=== PATIENT | male | born 1970 | race Caucasian/White ===

== ENCOUNTER 2016-09-22 19:16 | Emergency (ER) | payer MEDICAID ==
[2016-09-22 19:46] VITALS: BP 127/79; PULSE 104; RESP 20; TEMP 98.2; O2SAT 95
[2016-09-22 20:26] LABS: BASO # 0.1 K/uL (0.0-0.2); BASO % 0.8 % (0.0-2.0); EOS # 0.2 K/uL (0.0-0.7); EOS % 1.8 % (0.0-4.0); LYMPH # 1.4 K/uL (1.0-4.3); MEAN CELL VOLUME 89.6 fL (80.0-94.0); MEAN CORPUSCULAR HEMOGLOBIN 28.8 pg (27.0-31.0); MEAN CORPUSCULAR HGB CONC 32.2 g/dL (33.0-37.0); MEAN PLATELET VOLUME 8.8 fL (7.2-11.7); MONO % 11.5 % (0.0-10.0); RED CELL DISTRIBUTION WIDTH 15.2 % (11.5-14.5); WHITE BLOOD COUNT 8.8 K/uL (4.8-10.8)
--- NOTE | 2016-09-22 20:27 | C.PDOC ---
History Of Present Illness <Varinder Dupree - Last Filed: 09/22/16 21:16> <Issac Perez - Last Filed: 09/23/16 01:03> A 46 year old male presents to the emergency room with feelings of depression. There are no exacerbating or relieving factors. Patient denies any fever, chills , nausea, vomiting, SI/HI, hallucinations, or any other complaints. (Varinder Dupree) History Per: Patient History/Exam Limitations: no limitations Onset/Duration Of Symptoms: Hrs Current Symptoms Are (Timing): Still Present Suicide/Self Injury Attempted (Context): None Modifying Factor(s): None Severity: None Associated Symptoms: Depression. denies: Suicidal Thoughts, Suicidal Plan Recent travel outside of the [place]: No <Varinder Dupree - Last Filed: 09/22/16 21:16> <Issac Perez - Last Filed: 09/23/16 01:03> Time Seen by Provider: 09/22/16 19:44 Chief Complaint (Nursing): Psychiatric Evaluation Past Medical History Reviewed: Historical Data, Nursing Documentation, Vital Signs - Medical History PMH: Anxiety, Bipolar Disorder, Depression, HTN Denies: Diabetes, Hepatitis, HIV, Chronic Kidney Disease, Seizures, Sexually Transmitted Disease Surgical History: Cholecystectomy Family History: States: Unknown Family Hx - Social History Hx Tobacco Use: No Hx Alcohol Use: No Hx Substance Use: Yes - Immunization History Hx Tetanus Toxoid Vaccination: No Hx Influenza Vaccination: Yes Hx Pneumococcal Vaccination: Yes <Varinder Dupree - Last Filed: 09/22/16 21:16> Review Of Systems Except As Marked, All Systems Reviewed And Found Negative. Constitutional: Negative for: Fever, Chills Gastrointestinal: Negative for: Nausea, Vomiting, Diarrhea Psych: Positive for: Depression <Varinder Dupree - Last Filed: 09/22/16 21:16> Physical Exam - Physical Exam Appears: Non-toxic Skin: Warm, Dry, No Rash Head: Atraumatic, Normacephalic Cardiovascular: Rhythm Regular Respiratory: Normal Breath Sounds, No Rales, No Rhonchi, No Wheezing Gastrointestinal/Abdominal: Soft, No Tenderness, No Guarding, No Rebound Extremity: Normal ROM, No Tenderness Neurological/Psych: Oriented x3, Normal Speech, Normal Cognition <Varinder Dupree - Last Filed: 09/22/16 21:16> ED Course And Treatment - Laboratory Results Result Diagrams: 09/22/16 20:22 09/22/16 20:22 O2 Sat by Pulse Oximetry: 95 <Varinder Dupree - Last Filed: 09/22/16 21:16> - Laboratory Results Result Diagrams: 09/22/16 20:22 09/22/16 20:22 Pulse Ox Interpretation: Normal <Issac Perez - Last Filed: 09/23/16 01:03> Medical Decision Making <Varinder Dupree - Last Filed: 09/22/16 21:16> <AnaValdi - Last Filed: 09/23/16 01:03> Medical Decision Making: Plan: -- Labs/Urinalysis Progress Notes: Patient is medically cleared. (Varinder Dupree) Disposition <Varinder Dupree - Last Filed: 09/22/16 21:16> Counseled Patient/Family Regarding: Studies Performed, Diagnosis - Disposition Disposition Time: 01:00 <Issac Perez - Last Filed: 09/23/16 01:03> - Disposition Disposition: AGAINST MEDICAL ADVICE Condition: FAIR Instructions: Depression (DC), Cocaine Abuse (ED) - Clinical Impression Clinical Impression: Depression, Cocaine abuse - Scribe Statement The provider has reviewed the documentation as recorded by the Scribe <Varinder Dupree - Last Filed: 09/22/16 21:16> <Issac Perez - Last Filed: 09/23/16 01:03> - Scribe Statement Mario Hernandez All medical record entries made by the Scribe were at my direction and personally dictated by me. I have reviewed the chart and agree that the record accurately reflects my personal performance of the history, physical exam, medical decision making, and the department course for this patient. I have also personally directed, reviewed, and agree with the discharge instructions and disposition. (Varinder Dupree)
[2016-09-22 20:37] LABS: CHLORIDE 105 mmol/L (98-107); POTASSIUM 3.7 mmol/L (3.6-5.2); SODIUM 142 mmol/L (132-148)
[2016-09-22 20:39] LABS: ALB/GLOB RATIO 1.3 (1.0-2.1); ALKALINE PHOSPHATASE 47 U/L (38-126); AST/SGOT 19 U/L (17-59); BILIRUBIN,TOTAL 0.5 mg/dL (0.2-1.3); BLOOD UREA NITROGEN 20 mg/dL (9-20); CARBON DIOXIDE 30 mmol/L (22-30); GFR AFRICAN-AMERICAN > 60; TOTAL PROTEIN 6.3 g/dL (6.3-8.3)
[2016-09-22 20:40] LABS: ALCOHOL SERUM < 10 mg/dl (0-10); ALT/SGPT 19 U/L (21-72); GLUCOSE,RANDOM 104 mg/dL (75-110)
[2016-09-22 20:56] LABS: RBC URINE 3 /hpf (0-3); URINE BACTERIA OCC (<OCC); URINE BILIRUBIN NEGATIVE (NEGATIVE); URINE BLOOD NEGATIVE (NEGATIVE); URINE COLOR Yellow (YELLOW); URINE GLUCOSE (UA) NORMAL (Normal); URINE KETONE NEGATIVE (NEGATIVE); URINE LEUKOCYTE ESTERASE 1+ Leu/uL (Negative); URINE PROTEIN NEGATIVE (NEGATIVE); URINE UROBILINOGEN NORMAL mg/dL (0.2-1.0); WBC URINE 21 /hpf (0-5)
== END 2016-09-23 01:15 | disposition left against medical advice (07) ==
LOC: C.ER 19:16
DX: F32.89 Other specified depressive episodes (principal); F14.10 Cocaine abuse, uncomplicated

== ENCOUNTER 2017-08-11 11:08 | Inpatient (IN) | payer MEDICARE, MEDICAID ==
[2017-08-11 11:47] LABS: BASO # 0.1 K/uL (0.0-0.2); BASO % 0.7 % (0.0-2.0); EOS # 0.2 K/uL (0.0-0.7); EOS % 2.1 % (0.0-4.0); HEMOGLOBIN 15.2 g/dL (12.0-18.0); LYMPH # 1.2 K/uL (1.0-4.3); LYMPH % 11.5 % (20.0-40.0); MEAN CORPUSCULAR HEMOGLOBIN 28.6 pg (27.0-31.0); MEAN CORPUSCULAR HGB CONC 33.3 g/dL (33.0-37.0); MEAN PLATELET VOLUME 8.6 fL (7.2-11.7); MONO # 0.9 K/uL (0.0-0.8); MONO % 8.9 % (0.0-10.0); NEUT # 7.7 K/uL (1.8-7.0); NEUT % 76.8 % (50.0-75.0); RBC 5.32 Mil/uL (4.40-5.90); RED CELL DISTRIBUTION WIDTH 16.9 % (11.5-14.5); SQUAMOUS EPITHIAL 1 /hpf (0-5); URINE BILIRUBIN NEGATIVE (NEGATIVE); URINE BLOOD NEGATIVE (NEGATIVE); URINE CLARITY Clear (Clear); URINE COLOR Yellow (YELLOW); URINE GLUCOSE (UA) NORMAL (Normal); URINE LEUKOCYTE ESTERASE NEG Leu/uL (Negative); URINE PROTEIN NEGATIVE (NEGATIVE); URINE UROBILINOGEN NORMAL mg/dL (0.2-1.0); WHITE BLOOD COUNT 10.1 K/uL (4.8-10.8)
[2017-08-11 11:58] LABS: ALB/GLOB RATIO 1.2 (1.0-2.1); ALBUMIN 3.8 g/dL (3.5-5.0); ALT/SGPT 14 U/L (21-72); AST/SGOT 19 U/L (17-59); BLOOD UREA NITROGEN 24 mg/dL (9-20); CALCIUM 8.7 mg/dl (8.6-10.4); GFR AFRICAN-AMERICAN > 60; GFR NON-AFRICAN AMERICAN > 60
[2017-08-11 12:11] LABS: BARBITURATES, UR NEGATIVE (NEGATIVE); BENZODIAZEPINES, UR NEGATIVE (NEGATIVE); OPIATES, UR NEGATIVE (NEGATIVE); PHENCYCLIDINE, UR NEGATIVE (NEGATIVE)
--- NOTE | 2017-08-11 13:00 | C.PDOC ---
History Of Present Illness 47 year old male, with past medical history of anxiety, bipolar disorder, and depression, presents to ED for evaluation of depression and suicidal thoughts without a plan. Otherwise, denies hallucinations, homicidal ideation, or any active physical complaints at this time. Time Seen by Provider: 08/11/17 11:34 Chief Complaint (Nursing): Psychiatric Evaluation History Per: Patient History/Exam Limitations: no limitations Onset/Duration Of Symptoms: Gradual Current Symptoms Are (Timing): Still Present Suicide/Self Injury Attempted (Context): None Modifying Factor(s): None Severity: None Pain Scale Rating Of: 0 Associated Symptoms: Depression, Suicidal Thoughts. 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 Constitutional: Negative for: Fever, Chills Cardiovascular: Negative for: Chest Pain, Palpitations Respiratory: Negative for: Cough, Shortness of Breath Gastrointestinal: Negative for: Nausea, Vomiting, Abdominal Pain Psych: Positive for: Depression, Suicidal ideation Physical Exam - Physical Exam Appears: Non-toxic, No Acute Distress Skin: Normal Color, Warm, Dry Head: Atraumatic, Normacephalic Eye(s): bilateral: Normal Inspection Oral Mucosa: Moist Neck: Normal ROM, Supple Cardiovascular: Rhythm Regular Respiratory: No Accessory Muscle Use Extremity: Normal ROM, No Deformity Neurological/Psych: Oriented x3, Normal Speech ED Course And Treatment - Laboratory Results Result Diagrams: 08/11/17 11:40 08/11/17 11:40 O2 Sat by Pulse Oximetry: 94 Medical Decision Making Medical Decision Making: Labs ordered and reviewed. In my clinical judgment patient is medically cleared and stable for psychiatric admission. PES evaluated patient. Patient to be admitted to Dr Richards service for depression. 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 - Scribe Statement The provider has reviewed the documentation as recorded by the Scribe Jamaal Garsia All medical record entries made by the Scribe were at my direction and personally dictated by me. I have reviewed the chart and agree that the record accurately reflects my personal performance of the history, physical exam, medical decision making, and the department course for this patient. I have also personally directed, reviewed, and agree with the discharge instructions and disposition. Decision To Admit - Pt Status Changed To: Hospital Disposition Of: Inpatient - Admit Certification Admit to Inpatient:: After my assessment, the patient will require hospitalization for at least two midnights. This is because of the severity of symptoms shown, intensity of services needed, and/or the medical risk in this patient being treated as an outpatient. - InPatient: Physician Admission Certification: I certify that this patient requires 2 or more midnights of care for the following reason:: Patient to be admitted for depression - . Bed Request Type: Regular Admitting Physician: Girma Richards Patient Diagnosis: Depression
--- NOTE | 2017-08-12 06:46 | PCM.BM ---
<Raji Castaneda - Last Filed: 08/12/17 06:45> Treatment Plan Problems - Problems identified on initial assessmt Depression Date Initiated: 08/11/17 Time Initiated: 02:00 Assessment reference: NA Status: Active Treatment assets and liabiliti Patient Assests: good support system, negotiates basic needs Patient Liabilities: substance abuse (Cocaine) - Milieu Protocol Maintain good personal hygiene: daily Encourage regular showers, daily Remind patient to perform daily oral care, every shift Assist patient to perform ADL's Conduct patient checks and document Observation sheet: Q15 minutes Maintain personal safety: every shift Educate patient to report safety concerns to staff, every shift Monitor environment for contraband/sharps Medication safety: Monitor for expected outcome, potential side effects: every shift, Assess barriers to learning: every shift, Assess readiness for medication education: every shift <Kinjal Cruz - Last Filed: 08/13/17 11:32> - Diagnosis (1) Depression Status: Acute Interventions: 08/13/17 11:33 * Assess/adjust medications daily and /or as needed * See patient on an individual basis 7x/week to assess symptoms of depression * Monitor for side effects & effectiveness of medications * (2) Cocaine abuse Status: Acute Interventions: 08/13/17 11:33 * Assess 7x/week regarding severity of withdrawal * Educate regarding risks, benefits, side effects and alternatives of medications * Use Motivational Interviewing for abstinence * Use CBT for relapse prevention * Medication management for withdrawal symptoms * Encourage medication assisted treatment * <Francesca Mayen - Last Filed: 08/14/17 12:41> Family Contact Family involvement: Patient does not wish Family/SO involvement Family contact: Patient declines to allow family contact at present - Goals for Treatment Patient goals for treatment: "I want to be referred to [facility] -21 day rehab for substance abuse treatment." Discharge/Continuing Care - Education Needs Education Needs: Patient Medication, Patient Diagnosis/Disease Process, Patient Coping Skills, Patient Aftercare Safety Plan - Discharge Discharge Criteria: Free of Suicidal thoughts, Normal sleep pattern, Ability to care for self Discharge to:: Substance Abuse Rehab - Treatment Team Participation Discussed with Family/SO: No Was Patient/Family/SO present at Treatment Team Meeting: Yes
--- NOTE | 2017-08-12 14:47 | PCM.PSYCH ---
Initial Psychiatric Evaluation - Initial Psychiatric Evaluation Type of Admission: Voluntary Legal Status: Capacity Chief Complaint (in patient's own words): I started feeling more depressed and also had suicidal ideations. History of Present Illness and Precipitating Events: Patient is a 47 years old, , unemployed on disability, male with history of depression and cocaine use, was admitted due to worsening of depression and suicidal ideations without plan. Patient reported he started feeling more depressed for last 4-5 days for no reason, decreased sleep and feeling tired in the morning, no change in appetite but came to about 20 pounds in about one month. Also started suicidal ideations without plan. Denied any previous suicidal attempts or homicidal ideations. Patient denied any psychotic, or manic symptoms. Patient also reported having manic symptoms including decreased sleep, increased energy, shopping spree, involvement in reckless behavior at times. Patient reported these manic symptoms last for 1-2 days followed by depression. History of 4 previous inpatient psychiatric admissions. His last admission was at [facility] in 2016. Currently patient is taking Abilify 5 mg daily prescribed by his primary care physician. Patient didn't see any psychiatrist. Cocaine: Started using cocaine at 17 years of age, increased gradually. Currently he was smoking one to 5 g daily, smoking and sniffing. Last used reported 6 days ago. Urine drug screen was positive for cocaine. Also smokes one pack of cigarettes daily and is requesting for nicotine patch. Patient has history of [employer] accident in 2006 and had one lung collapsed, also was in coma for 1 month. Patient was on a respirator for about 6 months. Patient was born in [place], has some college education. Not working since 2006 , on disability. He is and has no children. Lives with his . His height is 6 feet and weight is 225 pounds. Current Medications: Active Medications Generic Name Dose Route Start Last Admin Trade Name Freq PRN Reason Stop Dose Admin Aripiprazole 5 mg 08/11/17 22:00 08/11/17 22:19 Abilify PO 5 mg HS CHLOÉ Administration Bupropion HCl 75 mg 08/12/17 14:45 Wellbutrin PO DAILY CHLOÉ Hydroxyzine HCl 25 mg 08/11/17 15:16 08/12/17 14:03 Atarax PO 25 mg Q6 PRN Administration Anxiety Lisinopril 20 mg 08/11/17 15:15 04/08/18 09:12 Zestril PO 20 mg DAILY CHLOÉ Administration Nicotine 1 patch 08/11/17 15:15 08/12/17 09:12 Nicoderm Cq TD 1 patch DAILY CHLOÉ Administration Fluticasone/Salmeterol 1 puff 08/12/17 20:00 Advair Diskus 250/50 INH RQ12 CHLOÉ Trazodone HCl 50 mg 08/11/17 22:00 08/11/17 22:19 Desyrel PO 50 mg HS CHLOÉ Administration Past Psychiatric History - Past Psychiatric History Previous Treatment History: Inpatient History of Abuse: None reported History of ETOH/Drug Use: See HPI History of Family Illness: None reported Pertinent Medical Hx (Current Medical&Sleep Prob, Allergies): Allergies Allergy/AdvReac Type Severity Reaction Status Date / Time diphenhydramine HCl Allergy ANAPHYLAXIS Verified 08/11/17 11:22 [From Benadryl] iodine Allergy RASH Verified 08/11/17 11:22 Penicillins Allergy RASH Verified 08/11/17 11:22 No Known Home Med 09/22/16 Hypertension COPD Peripheral neuropathy Review of Systems - Psychiatric Psychiatric: Abnormal Sleep Pattern, Anhedonia, Depression, Other Mental Status Examination - Personal Presentation Personal Presentation: Looks stated age - Affect Affect: Depressed - Motor Activity Motor Activity: Calm - Reliability in Providing Information Reliability in Providing Information: Fair - Speech Speech: Organized - Mood Mood: Depressed - Formal Thought Process Formal Thought Process: No Impairment - Hallucinations/Delusions Hallucinations: Other (None reported) Delusions: Other - Obsessions/Compulsions Obsessions: None Compulsions: None - Cognitive Functions Orientation: Person, Place, Situation, Time Sensorium: Alert Attention/Concentration: Attentive Abstract Thinking: [place] Estimate of Intelligence: Average Judgement: Intact, as evidence by: Insight regarding need for hospitalization Memory: Recent intact, as evidence by: Ability to recall events of the day, Remote intact, as evidenced by: Ability to recall historical events - Risk Risk: Withdrawal, Diminished functioning - Strength & Assets Inventory Strength & Assets Inventory: Family support, Cooperative - Limitations Limitations: Other DSM 5 DX - DSM 5 DSM 5 Diagnosis: Major depressive disorder recurrent severe without psychotic features Cocaine use disorder severe Provisional: Bipolar II disorder depressed - Recommended/Plan of Treatment Treatment Recommendations and Plan of Treatment: Patient education Supportive therapy CPT for relapse prevention IA for abstinence We will start Wellbutrin, continue with Abilify. Medication for COPD. Other when necessary medications. Patient wants to go to [facility] after discharge from the hospital for follow-up care. Projected ELOS: 8-10 days - Smoking Cessation Smoking Cessation Initiated: Yes
[2017-08-12] MEDS: Fluticasone-Salmeterol 250-50mcg Diskus INH SCH (20:11)
[2017-08-13] MEDS: Fluticasone-Salmeterol 250-50mcg Diskus INH SCH ×2 (08:30→20:28)
--- NOTE | 2017-08-13 11:32 | PCM.PYCHPN ---
Psychiatric Progress Note - Psychiatric Progress Note Patient seen today, length of contact: 15 min Patient Chief Complaint: I m feeling depressed Problems Identified/Issues Discussed: Patient seen and evaluated, chart reviewed and discussed with the nurse. He reports depressed mood and feelings of hopelessness and helplessness. Patient remained isolated, confined and withdrawn. Patient is compliant with medications and denies any side effects. Symptoms are improving but need more time to stabilize. Support and psychoeducation given. Medication Change: Yes Medical Record Reviewed: Yes Mental Status Examination - Cognitive Function Orientation: Person, Place, Situation, Time Memory: Intact Attention: WNL Concentration: Poor Association: WNL Fund of Knowledge: Poor - Mood Mood: Depressed, Anxious - Affect Affect: Constricted, Depressed - Speech Speech: Soft - Formal Thought Process Formal Thought Process: No Impairment - Suicidal Ideation Suicidal Ideation: No - Homicidal Ideation Homicidal Ideation: No Goal/Treatment Plan - Goal/Treatment Plan Need for Continued Stay: Severe depression anxiety, Severe functional impairment Progress Toward Problem(s) and Goals/Treatment Plan: Bipolar II disorder depressed severe without psychotic features Cocaine use disorder severe Patient education Supportive therapy CPT for relapse prevention MD for abstinence Wellbutrin Abilify. Medication for COPD. Other when necessary medications. Patient wants to go to [facility] rehabilitation after discharge from the hospital for follow-up care. - Smoking Cessation Smoking Cessation Initiated: No
[2017-08-14] MEDS: Fluticasone-Salmeterol 250-50mcg Diskus INH SCH ×2 (07:55→20:19)
--- NOTE | 2017-08-14 10:47 | PCM.PYCHPN ---
Psychiatric Progress Note - Psychiatric Progress Note Patient seen today, length of contact: 15 min Patient Chief Complaint: I am feeling little better.' Problems Identified/Issues Discussed: Patient seen and evaluated, chart reviewed and discussed with the nurse. He reports some improvement in his depressed mood and reports some improvement in the feelings of hopelessness and helplessness. Patient remained isolated, confined and withdrawn. Patient is compliant with medications and denies any side effects. Symptoms are improving but need more time to stabilize. Support and psychoeducation given. Medication Change: Yes (increase welbutrin) Medical Record Reviewed: Yes Mental Status Examination - Cognitive Function Orientation: Person, Place, Situation, Time Memory: Intact Attention: WNL Concentration: Poor Association: WNL Fund of Knowledge: Poor - Mood Mood: Depressed, Anxious - Affect Affect: Constricted, Depressed - Speech Speech: Soft - Formal Thought Process Formal Thought Process: No Impairment - Suicidal Ideation Suicidal Ideation: No - Homicidal Ideation Homicidal Ideation: No Goal/Treatment Plan - Goal/Treatment Plan Need for Continued Stay: Severe depression anxiety, Severe functional impairment Progress Toward Problem(s) and Goals/Treatment Plan: Bipolar II disorder depressed severe without psychotic features Cocaine use disorder severe Patient education Supportive therapy CPT for relapse prevention NV for abstinence Wellbutrin Abilify. Medication for COPD. Other when necessary medications. Patient wants to go to [facility] after discharge from the hospital for follow-up care. - Smoking Cessation Smoking Cessation Initiated: No
[2017-08-15 06:39] VITALS: RESP 20
[2017-08-15] MEDS: Fluticasone-Salmeterol 250-50mcg Diskus INH SCH ×2 (08:27→20:53)
[2017-08-15] MEDS: buPROPion 150 mg/24 Hours XL Tab PO SCH (10:16)
--- NOTE | 2017-08-15 13:21 | PCM.PYCHPN ---
Psychiatric Progress Note - Psychiatric Progress Note Patient seen today, length of contact: 15 min Patient Chief Complaint: I am still feeling depressed.' Problems Identified/Issues Discussed: The pt is seen, chart reviewed, case discussed with staff. Patient states he slept okay and eating okay. Support given, CBT and [place] used briefly Patient is complaint with medications. No new symptoms reported, improving slowly and needs more time No SEs from medications, risks discussed. Medication Change: Yes (increase welbutrin) Medical Record Reviewed: Yes Mental Status Examination - Cognitive Function Orientation: Person, Place, Situation, Time Memory: Intact Attention: WNL Concentration: Poor Association: WNL Fund of Knowledge: Poor - Mood Mood: Depressed - Affect Affect: Constricted, Depressed - Speech Speech: Soft - Formal Thought Process Formal Thought Process: No Impairment - Suicidal Ideation Suicidal Ideation: No - Homicidal Ideation Homicidal Ideation: No Goal/Treatment Plan - Goal/Treatment Plan Need for Continued Stay: Severe depression anxiety, Severe functional impairment Progress Toward Problem(s) and Goals/Treatment Plan: Bipolar II disorder depressed severe without psychotic features Cocaine use disorder severe Patient education Supportive therapy CPT for relapse prevention [place] for abstinence Wellbutrin Abilify. Medication for COPD. Other when necessary medications. Patient plans to go to [facility] after discharge from the hospital for follow-up care.
[2017-08-16] MEDS: Fluticasone-Salmeterol 250-50mcg Diskus INH SCH ×2 (09:40→20:17)
[2017-08-16] MEDS: buPROPion 150 mg/24 Hours XL Tab PO SCH (09:40)
--- NOTE | 2017-08-16 23:45 | PCM.PYCHPN ---
Psychiatric Progress Note - Psychiatric Progress Note Patient seen today, length of contact: 15 min Patient Chief Complaint: I am still feeling depressed.' Problems Identified/Issues Discussed: The pt is seen, chart reviewed, case discussed with staff. Patient states he slept okay and eating okay. Support given, CBT and CA used briefly Patient is complaint with medications. No new symptoms reported, improving slowly and needs more time No SEs from medications, risks discussed. Medication Change: Yes (increase welbutrin) Medical Record Reviewed: Yes Mental Status Examination - Cognitive Function Orientation: Person, Place, Situation, Time Memory: Intact Attention: WNL Concentration: Poor Association: WNL Fund of Knowledge: Poor - Mood Mood: Depressed - Affect Affect: Constricted, Depressed - Speech Speech: Soft - Formal Thought Process Formal Thought Process: No Impairment - Suicidal Ideation Suicidal Ideation: No - Homicidal Ideation Homicidal Ideation: No Goal/Treatment Plan - Goal/Treatment Plan Need for Continued Stay: Severe depression anxiety, Severe functional impairment Progress Toward Problem(s) and Goals/Treatment Plan: Bipolar II disorder depressed severe without psychotic features Cocaine use disorder severe Patient education Supportive therapy CPT for relapse prevention [place] for abstinence Wellbutrin Abilify. Medication for COPD. Other when necessary medications. Patient plans to go to [facility] after discharge from the hospital for follow-up care.
--- NOTE | 2017-08-17 00:25 | PCM.BM ---
Treatment Plan Problems - Problems identified on initial assessmt Depression Date Initiated: 08/11/17 Time Initiated: 02:00 Assessment reference: NA Status: Active Suicidal Ideation Date Initiated: 08/17/17 Time Initiated: 17:30 Assessment reference: NA Status: Monitor Treatment assets and liabiliti Patient Assests: good support system, negotiates basic needs Patient Liabilities: substance abuse (Cocaine, Heroin) - Milieu Protocol Maintain good personal hygiene: daily Encourage regular showers, daily Remind patient to perform daily oral care, every shift Assist patient to perform ADL's Conduct patient checks and document Observation sheet: Q15 minutes Maintain personal safety: every shift Educate patient to report safety concerns to staff, every shift Monitor environment for contraband/sharps Medication safety: Monitor for expected outcome, potential side effects: every shift, Assess barriers to learning: every shift, Assess readiness for medication education: every shift Milieu Narrative: Bipolar II disorder depressed severe without psychotic features Cocaine use disorder severe Patient education Supportive therapy CPT for relapse prevention CO for abstinence Wellbutrin Abilify. Medication for COPD. Other when necessary medications. Patient plans to go to [facility] rehabilitation after discharge from the hospital for follow-up care. Family Contact Family involvement: Patient does not wish Family/SO involvement Family contact: Patient declines to allow family contact at present - Goals for Treatment Patient goals for treatment: "I want to be referred to [facility] -21 day rehab for substance abuse treatment." Discharge/Continuing Care - Education Needs Education Needs: Patient Medication, Patient Diagnosis/Disease Process, Patient Coping Skills, Patient Aftercare Safety Plan - Discharge Discharge Criteria: Free of Suicidal thoughts, Normal sleep pattern, Ability to care for self Discharge to:: Substance Abuse Rehab - Treatment Team Participation Patient/Family/SO Statement: Bipolar II disorder depressed severe without psychotic features Cocaine use disorder severe Patient education Supportive therapy CPT for relapse prevention CO for abstinence Wellbutrin Abilify. Medication for COPD. Other when necessary medications. Patient plans to go to [facility] rehabilitation after discharge from the hospital for follow-up care. Discussed with Family/SO: No Was Patient/Family/SO present at Treatment Team Meeting: Yes
[2017-08-17] MEDS: Fluticasone-Salmeterol 250-50mcg Diskus INH SCH ×2 (08:02→20:12)
[2017-08-17] MEDS: buPROPion 150 mg/24 Hours XL Tab PO SCH (10:07)
--- NOTE | 2017-08-17 11:31 | PCM.PYCHPN ---
Psychiatric Progress Note - Psychiatric Progress Note Patient seen today, length of contact: 15 min Patient Chief Complaint: I am still feeling depressed.' Problems Identified/Issues Discussed: The pt is seen, chart reviewed, case discussed with staff. Patient states he slept okay and eating okay. Support given, CBT and IA used briefly Patient is complaint with medications. No new symptoms reported, improving slowly and needs more time No SEs from medications, risks discussed. Medication Change: Yes (increase welbutrin) Medical Record Reviewed: Yes Mental Status Examination - Cognitive Function Orientation: Person, Place, Situation, Time Memory: Intact Attention: WNL Concentration: Poor Association: WNL Fund of Knowledge: Poor - Mood Mood: Depressed - Affect Affect: Constricted, Depressed - Speech Speech: Soft - Formal Thought Process Formal Thought Process: No Impairment - Suicidal Ideation Suicidal Ideation: No - Homicidal Ideation Homicidal Ideation: No Goal/Treatment Plan - Goal/Treatment Plan Need for Continued Stay: Severe depression anxiety, Severe functional impairment Progress Toward Problem(s) and Goals/Treatment Plan: Bipolar II disorder depressed severe without psychotic features Cocaine use disorder severe Patient education Supportive therapy CPT for relapse prevention IA for abstinence Wellbutrin Abilify. Medication for COPD. Other when necessary medications. Patient plans to go to [facility] after discharge from the hospital for follow-up care.
[2017-08-18] MEDS: Fluticasone-Salmeterol 250-50mcg Diskus INH SCH ×2 (08:00→20:44)
[2017-08-18] MEDS: buPROPion 150 mg/24 Hours XL Tab PO SCH (09:53)
--- NOTE | 2017-08-18 13:03 | PCM.PYCHPN ---
Psychiatric Progress Note - Psychiatric Progress Note Patient seen today, length of contact: 15 min Patient Chief Complaint: I am waiting to hear from rehab' Problems Identified/Issues Discussed: The pt is seen, chart reviewed, case discussed with staff. Patient states he slept okay and eating okay. patient still waiting for response from rehabilitation. Support given, CBT and AR used briefly Patient is complaint with medications. No new symptoms reported, improving slowly and needs more time No SEs from medications, risks discussed. Medication Change: Yes (increase welbutrin) Medical Record Reviewed: Yes Mental Status Examination - Cognitive Function Orientation: Person, Place, Situation, Time Memory: Intact Attention: WNL Concentration: Poor Association: WNL Fund of Knowledge: Poor - Mood Mood: Depressed - Affect Affect: Constricted, Depressed - Speech Speech: Soft - Formal Thought Process Formal Thought Process: No Impairment - Suicidal Ideation Suicidal Ideation: No - Homicidal Ideation Homicidal Ideation: No Goal/Treatment Plan - Goal/Treatment Plan Need for Continued Stay: Severe depression anxiety, Severe functional impairment Progress Toward Problem(s) and Goals/Treatment Plan: Bipolar II disorder depressed severe without psychotic features Cocaine use disorder severe Patient education Supportive therapy CPT for relapse prevention AR for abstinence Wellbutrin 150 mg Abilify 10 mg Trazodone 50 mg Medication for COPD. Other when necessary medications. Patient plans to go to [facility] after discharge from the hospital for follow-up care. - Smoking Cessation Smoking Cessation Initiated: No
[2017-08-19] MEDS: Fluticasone-Salmeterol 250-50mcg Diskus INH SCH ×2 (08:00→20:11)
[2017-08-19] MEDS: buPROPion 150 mg/24 Hours XL Tab PO SCH (09:40)
--- NOTE | 2017-08-19 10:49 | PCM.PYCHPN ---
Psychiatric Progress Note - Psychiatric Progress Note Patient seen today, length of contact: 15 min Patient Chief Complaint: I am waiting to hear from rehab' Problems Identified/Issues Discussed: The pt is seen, chart reviewed, case discussed with staff. Patient states he slept okay and eating okay. patient still waiting for response from rehabilitation. Support given, CBT and [place] used briefly Patient is complaint with medications. No new symptoms reported, improving slowly and needs more time No SEs from medications, risks discussed. Medication Change: Yes (increase welbutrin) Medical Record Reviewed: Yes Mental Status Examination - Cognitive Function Orientation: Person, Place, Situation, Time Memory: Intact Attention: WNL Concentration: Poor Association: WNL Fund of Knowledge: Poor - Mood Mood: Depressed - Affect Affect: Constricted, Depressed - Speech Speech: Soft - Formal Thought Process Formal Thought Process: No Impairment - Suicidal Ideation Suicidal Ideation: No - Homicidal Ideation Homicidal Ideation: No Goal/Treatment Plan - Goal/Treatment Plan Need for Continued Stay: Severe depression anxiety, Severe functional impairment Progress Toward Problem(s) and Goals/Treatment Plan: Bipolar II disorder depressed severe without psychotic features Cocaine use disorder severe Patient education Supportive therapy CPT for relapse prevention [place] for abstinence Wellbutrin 150 mg Abilify 10 mg Trazodone 50 mg Medication for COPD. Other when necessary medications. Patient plans to go to [facility] after discharge from the hospital for follow-up care.
[2017-08-20 06:43] VITALS: BP 119/85; PULSE 84; TEMP 98; O2SAT 94
[2017-08-20] MEDS: Fluticasone-Salmeterol 250-50mcg Diskus INH SCH (08:01)
[2017-08-20] MEDS: buPROPion 150 mg/24 Hours XL Tab PO SCH (09:48)
--- NOTE | 2017-08-20 10:06 | PCM.PYCHDC ---
Mental Status Examination - Mental Status Examination Orientation: Person, Place, Situation, Time Memory: Intact Mood: Neutral Affect: Constricted Speech: Soft Attention: WNL Concentration: WNL Association: WNL Fund of Knowledge: WNL Formal Thought Process: No Impairment Description of patient's judgement and insight: good, fair Psychotic Thoughts and Behaviors: denies any AVH Suicidal Ideation: No Current Homicidal Ideation?: No Discharge Summary - Discharge Note Reason for Hospitalization: Patient is a 47 years old, , unemployed on disability, male with history of depression and cocaine use, was admitted due to worsening of depression and suicidal ideations without plan. Patient reported he started feeling more depressed for last 4-5 days for no reason, decreased sleep and feeling tired in the morning, no change in appetite but came to about 20 pounds in about one month. Also started suicidal ideations without plan. Denied any previous suicidal attempts or homicidal ideations. Patient denied any psychotic, or manic symptoms. Patient also reported having manic symptoms including decreased sleep, increased energy, shopping spree, involvement in reckless behavior at times. Patient reported these manic symptoms last for 1-2 days followed by depression. History of 4 previous inpatient psychiatric admissions. His last admission was at [facility] in 2016. Currently patient is taking Abilify 5 mg daily prescribed by his primary care physician. Patient didn't see any psychiatrist. Cocaine: Started using cocaine at 17 years of age, increased gradually. Currently he was smoking one to 5 g daily, smoking and sniffing. Last used reported 6 days ago. Urine drug screen was positive for cocaine. Also smokes one pack of cigarettes daily and is requesting for nicotine patch. Patient has history of [employer] accident in 2006 and had one lung collapsed, also was in coma for 1 month. Patient was on a respirator for about 6 months. Patient was born in [place], has some college education. Not working since 2006 , on disability. He is and has no children. Lives with his . His height is 6 feet and weight is 225 pounds. Consultations:: List each consultation separately and include: 1. Reason for request. 2. Findings. 3. Follow-up Summary of Hospital Course include:: 1. Description of specific treatment plan utilized for patients during their course of treatmen. 2. Summarize the time- course for resolution of acute symptoms and/or regressed behaviors. 3. Describe issues identified and worked on during hospitalization. 4. Describe medication utilized. 5. Describe medical problems identified and treated. 6. Reassessment of suicide risk - Diagnosis (1) Depression Current Visit: Yes Status: Acute (2) Cocaine abuse Current Visit: No Status: Acute - Final Diagnosis (DSM 5) Condition upon Discharge: STABLE DSM 5: Major depressive disorder recurrent severe without psychotic features Cocaine use disorder severe Provisional: Bipolar II disorder depressed Disposition: HOME/ ROUTINE Follow-up Treatment Plan: Bipolar II disorder depressed severe without psychotic features Cocaine use disorder severe Patient education Supportive therapy CPT for relapse prevention AR for abstinence Wellbutrin 150 mg Abilify 10 mg Trazodone 50 mg Medication for COPD. Other when necessary medications. Patient plans to go to [facility] rehabilitation after discharge from the hospital for follow-up care. Prescriptions/Medication Reconciliation: ARIPiprazole [Abilify] 10 mg PO HS #30 tab buPROPion XL [Wellbutrin XL] 150 mg PO DAILY #30 t24 traZODone [Desyrel] 50 mg PO HS #30 tab - Smoking Cessation Smoking Cessation Medication prescribed: No - Antipsychotic Medications Pt discharged on 2 or more routine antipsychotic medications: No
== END 2017-08-20 13:16 | disposition home or self-care (01) | DRG 885 ==
LOC: C.ER 11:08 → C.5E 13:00
PROC: GZHZZZZ Group Psychotherapy (ICD-10-PCS; principal; 2017-08-11)
PROC: GZ58ZZZ Individual Psychotherapy, Cognitive-Behavioral (ICD-10-PCS; 2017-08-11)
PROC: GZ56ZZZ Individual Psychotherapy, Supportive (ICD-10-PCS; 2017-08-11)
DX: F33.2 Major depressive disorder, recurrent severe without psychotic features (principal); F14.20 Cocaine dependence, uncomplicated; R45.851 Suicidal ideations; F17.210 Nicotine dependence, cigarettes, uncomplicated; I10 Essential (primary) hypertension; J44.9 Chronic obstructive pulmonary disease, unspecified

== ENCOUNTER 2018-06-15 10:37 | Inpatient (IN) | payer MEDICAID, MEDICARE ==
--- NOTE | 2018-06-15 12:11 | C.PDOC ---
History Of Present Illness 48 year old male presents to the emergency department with complaints of hemoptysis since yesterday. Patient states that he developed a cough with associated body aches, and reports noticing dark blood in his phlegm. Patient also reports shortness of breath, but denies fever, chills, and nasal congestion. Time Seen by Provider: 06/15/18 11:35 Chief Complaint (Nursing): Cough, Cold, Congestion History Per: Patient History/Exam Limitations: no limitations Onset/Duration Of Symptoms: Days (1) Current Symptoms Are (Timing): Still Present Location Of Pain: Diffuse Myalgias Associated Symptoms: Cough, Sputum. denies: Fever, Chills, Nasal Congestion Past Medical History Reviewed: Historical Data, Nursing Documentation, Vital Signs Vital Signs: Last Vital Signs Temp 98.8 F 06/15/18 10:44 Pulse 100 H 06/15/18 10:44 Resp 20 06/15/18 10:44 BP 153/105 H 06/15/18 10:44 Pulse Ox 97 06/15/18 10:44 - Medical History PMH: Anxiety, Bipolar Disorder, COPD, Depression, HTN Denies: Diabetes, Hepatitis, HIV, Chronic Kidney Disease, Seizures, Sexually Transmitted Disease Surgical History: Cholecystectomy - [facility] GROUP DISPLAYER FOR SUBSTANCE ABUSE TREATMENT, PSYCHOEDUCATION (08/17/15) GROUP PSYCHOTHERAPY (08/11/17) INDIVIDUAL PSYCHOTHERAPY, COGNITIVE-BEHAVIORAL (08/11/17) INDIVIDUAL PSYCHOTHERAPY, SUPPORTIVE (08/11/17) Family History: States: Unknown Family Hx - Social History Hx Tobacco Use: No Hx Alcohol Use: Yes Hx Substance Use: Yes - Immunization History Hx Tetanus Toxoid Vaccination: No Hx Influenza Vaccination: No Hx Pneumococcal Vaccination: No Review Of Systems Except As Marked, All Systems Reviewed And Found Negative. Constitutional: Negative for: Fever, Chills ENT: Negative for: Nose Congestion Respiratory: Positive for: Cough, Shortness of Breath, Hemoptysis Physical Exam - Physical Exam Appears: Non-toxic, No Acute Distress Skin: Normal Color, Warm, Dry Head: Atraumatic, Normacephalic Eye(s): bilateral: Normal Inspection Nose: Normal Oral Mucosa: Moist Throat: Normal, No Erythema, No Exudate Neck: Normal, Supple Chest: Symmetrical, No Tenderness Cardiovascular: Rhythm Regular, No Murmur Respiratory: Normal Breath Sounds, No Rales, No Rhonchi, No Wheezing Gastrointestinal/Abdominal: Soft, No Tenderness Extremity: Normal ROM Neurological/Psych: Oriented x3, Normal Speech, Normal Cognition ED Course And Treatment - Laboratory Results Result Diagrams: 06/15/18 13:29 06/15/18 12:59 O2 Sat by Pulse Oximetry: 97 (RA) Pulse Ox Interpretation: Normal Medical Decision Making Medical Decision Making: Plan: CXR Spoke to Dr. Rosales Biggs, who requested to admit the patient to Dr. Radha Biggs. Disposition Discussed With : Rosales Biggs (admit to [facility]) Counseled Patient/Family Regarding: Diagnosis - Disposition Disposition: HOSPITALIZED Disposition Time: 16:50 Condition: STABLE - Clinical Impression Clinical Impression: Pulmonary embolism - Scribe Statement The provider has reviewed the documentation as recorded by the Scribe (Santiago Mobley) Provider Attestation: All medical record entries made by the Scribe were at my direction and personally dictated by me. I have reviewed the chart and agree that the record accurately reflects my personal performance of the history, physical exam, medical decision making, and the department course for this patient. I have also personally directed, reviewed, and agree with the discharge instructions and disposition.
[2018-06-15 13:24] LABS: BLOOD UREA NITROGEN 22 mg/dL (9-20); CALCIUM 8.8 mg/dl (8.6-10.4); GFR NON-AFRICAN AMERICAN > 60
[2018-06-15 13:42] LABS: BASO % 0.4 % (0.0-2.0); EOS # 0.1 K/uL (0.0-0.7); EOS % 1.3 % (0.0-4.0); LYMPH # 0.9 K/uL (1.0-4.3); LYMPH % 10.7 % (20.0-40.0); MEAN CELL VOLUME 87.8 fL (80.0-94.0); MEAN CORPUSCULAR HEMOGLOBIN 28.8 pg (27.0-31.0); MEAN CORPUSCULAR HGB CONC 32.8 g/dL (33.0-37.0); MEAN PLATELET VOLUME 8.4 fL (7.2-11.7); MONO # 0.9 K/uL (0.0-0.8); MONO % 10.8 % (0.0-10.0); NEUT # 6.8 K/uL (1.8-7.0); NEUT % 76.8 % (50.0-75.0); RBC 5.57 Mil/uL (4.40-5.90); RED CELL DISTRIBUTION WIDTH 15.6 % (11.5-14.5); WHITE BLOOD COUNT 8.8 K/uL (4.8-10.8)
[2018-06-15 13:50] LABS: INR 1.1; PARTIAL THROMBOPLASTIN TIME 37 SECONDS (21-34); PROTHROMBIN TIME 11.7 SECONDS (9.7-12.2)
[2018-06-15 13:51] LABS: D DIMER < 200 ng/mlDDU (0-243)
--- NOTE | 2018-06-15 16:22 | NM ---
Date of service: 06/15/2018 COMPARISON: Chest radiographs 06/15/2018. TECHNIQUE: Seventeen mCi technetium 99-m Xe-133 Gas. Four mCI technetium 99-m MAA administered intravenously. FINDINGS: VENTILATION COMPONENT: Small right mid lung zone ventilation defects identified with remaining ventilation normal in appearance. PERFUSION COMPONENT: There are multifocal perfusion defects scattered bilaterally the majority of which are small but numerous. Most of these would reflect perfusion mismatches. IMPRESSION: Highprobability ventilation perfusion scan for pulmonary embolism.
--- NOTE | 2018-06-15 16:37 | CT ---
Date of service: 06/15/2018 PROCEDURE: CT Chest without contrast HISTORY: hemoptysis COMPARISON: None available. TECHNIQUE: Contiguous axial images were obtained through the chest without intravenous contrast enhancement. Sagittal and coronal reconstructions were performed. Radiation dose: Total exam DLP = 849.38 mGy-cm. This CT exam was performed using one or more of the following dose reduction techniques: Automated exposure control, adjustment of the mA and/or kV according to patient size, and/or use of iterative reconstruction technique. FINDINGS: LUNGS: Marked bilateral upper lobe volume loss and fibrosis is reiterated and stable in the interval with the middle and lower lobes adequately aerated once again. There is hyperaeration of the bilateral lower lobes and the right middle lobe to compensate for upper lobe volume loss. No acute consolidation bilaterally. Central airways are stable in appearance throughout. MEDIASTINUM: 4.0 cm ascending thoracic aorta resumes a normal caliber at the arch anteriorly. Normal sized heart. Main pulmonary artery unremarkable. No vascular congestion. No lymphadenopathy. No aortic atherosclerotic calcification. PLEURA: No pleural fluid. No pneumothorax. BONES: A few old healed left rib fractures identified. UPPER ABDOMEN: Prior cholecystectomy. Prior left upper quadrant surgery, possibly gastric bypass surgery. OTHER FINDINGS: None. IMPRESSION: 1. Prominent bilateral upper lobe scarring/volume loss with compensatory hyperinflation of the right middle and bilateral lower lobes. No acute interval consolidation, pleural effusion or pneumothorax. No definite interval mass. 2. Mild thoracic aortic aneurysm terminates at anterior arch. 3. Old healed left rib fractures.
[2018-06-15] MEDS ORDERED: Heparin25000 units/250ml 1/2NS 25,000 UNITS/250 ML BAG IV PRN ×2 (16:41→23:45)
--- NOTE | 2018-06-15 18:35 | RAD ---
Date of service: 06/15/2018 HISTORY: hemoptisis COMPARISON: Chest radiographs 06/05/2017. TECHNIQUE: Chest PA and lateral FINDINGS: LUNGS: No acute infiltrate bilaterally. Fibrotic changes are identified at the left greater than right pulmonary apices with left-sided pleural thickening reiterated. Nodular changes seen at the inferior right lung zone laterally. Tenting of the right greater than left hemidiaphragm is noted. Bilateral hilar regions are displaced cephalad from fibrosis. PLEURA: No significant pleural effusion identified. No pneumothorax apparent. CARDIOVASCULAR: No aortic atherosclerotic calcification present. Normal cardiac size. No pulmonary vascular congestion. OSSEOUS STRUCTURES: No significant abnormalities. VISUALIZED UPPER ABDOMEN: Normal. OTHER FINDINGS: None. IMPRESSION: Fibrotic changes as discussed above with no acute infiltrate bilaterally. Distortion of the hilar regions of has occurred as well as hemidiaphragms due to fibrosis of the bilateral apices. No acute infiltrate or pleural effusion bilaterally.
[2018-06-15] MEDS: buPROPion 150 mg/24 Hours XL Tab PO SCH (21:18)
[2018-06-15] MEDS: guaiFENesin 100 mg/5 ml Syrup UD PO SCH (21:19)
[2018-06-15] MEDS: Moxifloxacin IV 400mg/250ml NS 400 MG/250 ML BAG IVPB SCH (22:44)
[2018-06-15] MEDS: Albuterol-Ipratrop 3 mg / 0.5 (3 ml) UD INH SCH (23:49)
[2018-06-16 01:41] VITALS: RESP 20
[2018-06-16] MEDS: Albuterol-Ipratrop 3 mg / 0.5 (3 ml) UD INH SCH ×5 (03:17→19:58)
[2018-06-16 08:07] LABS: HEMOGLOBIN 14.1 g/dL (12.0-18.0); MEAN CELL VOLUME 88.5 fL (80.0-94.0); MEAN CORPUSCULAR HEMOGLOBIN 29.2 pg (27.0-31.0); MEAN PLATELET VOLUME 8.2 fL (7.2-11.7); RBC 4.85 Mil/uL (4.40-5.90); WHITE BLOOD COUNT 8.8 K/uL (4.8-10.8)
[2018-06-16 08:45] LABS: ALB/GLOB RATIO 1.2 (1.0-2.1); ALBUMIN 3.4 g/dL (3.5-5.0); ALT/SGPT 8 U/L (21-72); AST/SGOT 18 U/L (17-59); BLOOD UREA NITROGEN 19 mg/dL (9-20); CALCIUM 8.4 mg/dl (8.6-10.4); GFR NON-AFRICAN AMERICAN > 60
[2018-06-16] MEDS: guaiFENesin 100 mg/5 ml Syrup UD PO SCH ×4 (10:16→21:30)
[2018-06-16] MEDS: [UNRECOGNIZED DRUG - OTHER] IV PRN (10:23)
[2018-06-16] MEDS: Moxifloxacin IV 400mg/250ml NS 400 MG/250 ML BAG IVPB SCH (21:30)
[2018-06-16] MEDS: buPROPion 150 mg/24 Hours XL Tab PO SCH (21:30)
[2018-06-17] MEDS: Albuterol-Ipratrop 3 mg / 0.5 (3 ml) UD INH SCH ×6 (00:20→19:33)
--- NOTE | 2018-06-17 07:42 | CP.PCM.PN ---
Subjective - Date & Time of Evaluation Date of Evaluation: 06/17/18 Time of Evaluation: 07:42 - Subjective Subjective: Dr. Biggs Service 48 year old male presents to the emergency department with complaints of hemoptysis since for the past couple of days. Patient also reported chest pain associated with the cough. Patient denied any alleiviating or modifying factors. Patient states he began coughing up blood which was the reason he came into the emergency room. Patient seen and examined at bedside. Per nursing no acute events occurred overnight. Patient denies any chest pain, shortness of breath, fevers, chills, abdominal pain, syncopal episodes, or any other complaints. Past medical history: anxiety, bipolar disorder, copd, depression, hypertension Surgical history: cholecystectomy, gastric bypass Allergies: penicillin, iodine, benadryl Social history: 1/2 pack x 30years Objective - Vital Signs/Intake and Output Vital Signs (last 24 hours): Temp Pulse Resp BP Pulse Ox 98.1 F 101 H 20 103/66 96 06/16/18 23:35 06/17/18 04:01 06/16/18 23:35 06/16/18 23:35 06/16/18 23:35 Intake and Output: 06/17/18 06/17/18 06:59 18:59 Intake Total 342 Output Total 750 Balance -408 - Medications Medications: Current Medications Acetaminophen (Tylenol 325mg Tab) 650 mg PO Q4H PRN PRN Reason: pain fever Albuterol/Ipratropium (Duoneb 3 Mg/0.5 Mg (3 Ml) Ud) 3 ml INH RQ4 [facility] Last Admin: 06/17/18 04:30 Dose: Not Given Aripiprazole (Abilify) 10 mg PO DAILY [facility] Last Admin: 06/16/18 10:16 Dose: 10 mg Bupropion HCl (Wellbutrin Xl) 150 mg PO HS [facility] Last Admin: 06/16/18 21:30 Dose: 150 mg Guaifenesin (Robitussin) 100 mg PO QID [facility] Last Admin: 06/16/18 21:30 Dose: Not Given Heparin Sodium/Sodium Chloride (Heparin 02803 Units/250ml 1/2 Normal Saline) 25,000 units in 250 mls @ 12.791 mls/hr IV .[id number] PRN; Protocol PRN Reason: ADJUST RATE PER PROTOCOL Last Admin: 06/16/18 10:23 Dose: 12 units/kg/hr, 12.791 mls/hr Influenza Virus Vaccine (Flucelvax Quad [id number] Syr) 60 mcg IM .ONCE ONE Stop: 06/17/18 10:01 Trazodone HCl (Desyrel) 50 mg PO HS CHLOÉ Last Admin: 06/16/18 21:30 Dose: 50 mg - Labs Labs: 06/16/18 08:00 06/16/18 08:00 PT 11.7 SECONDS (9.7-12.2) 06/15/18 13:29 INR 1.1 06/15/18 13:29 APTT 67 SECONDS (21-34) H D 06/16/18 22:40 - Head Exam Head Exam: ATRAUMATIC, NORMAL INSPECTION - Eye Exam Eye Exam: EOMI Pupil Exam: NORMAL ACCOMODATION - ENT Exam ENT Exam: Mucous Membranes Moist, Normal Oropharynx - Respiratory Exam Respiratory Exam: Clear to Ausculation Bilateral, NORMAL BREATHING PATTERN - Cardiovascular Exam Cardiovascular Exam: REGULAR RHYTHM, +S1, +S2 - GI/Abdominal Exam GI & Abdominal Exam: Soft, Normal Bowel Sounds - Neurological Exam Neurological Exam: Alert, Awake, Oriented x3 - Psychiatric Exam Psychiatric exam: Normal Affect, Normal Mood - Skin Skin Exam: Dry, Intact, Normal Color Assessment and Plan - Assessment and Plan (Free Text) Assessment: 48 year old male with a past medical history of anxiety, bipolar disorder, copd, depression, and hypertension presents with pulmonary embolism. Plan: 1. Pulmonary embolism. V/Q Scan: high probability of pulmonary embolism CXR: :Fibrotic changes as discussed above with no acute infiltrate bilaterally. Distortion of the hilar regions of has occurred as well as hemidiaphragms due to fibrosis of the bilateral apices. No acute infiltrate or pleural effusion bilaterally. Chest ct: 1. Prominent bilateral upper lobe scarring/volume loss with compensatory hyperinflation of the right middle and bilateral lower lobes. No acute interval consolidation, pleural effusion or pneumothorax. No definite interval mass. 2. Mild thoracic aortic aneurysm terminates at anterior arch. 3. Old healed left rib fractures. Duplex taken. Will f/u with final read. Medications: Heparin Drip @12.791 mls/hr 2.Bipolar disorder -Abilify 10mg PO Daily 3.Depression -[id number] PO HS 4. Cough - [id number] PO QID CHLOÉ 5. Insomnia -Trazadone 50mg PO HS CHLOÉ All management per Dr. Dian Prieto, PGY2
--- NOTE | 2018-06-17 09:15 | HP ---
HISTORY OF PRESENT ILLNESS: This is a 48-year-old male, admitted to the hospital with chief complaints of weakness, fatigue, tiredness, cough, and hemoptysis. The patient came to the ER, advised admission. The patient has history of previous surgery, status post chest tube. V/Q scan done was reported as scan. PHYSICAL EXAMINATION: GENERAL: The patient is awake, alert, and oriented. VITAL SIGNS: Temperature 98, pulse 90. HEENT: Within normal limit. NECK: Supple. CHEST: Symmetrical. HEART: Regular. ABDOMEN: Soft. EXTREMITIES: No edema. ASSESSMENT AND PLAN: The patient suffers from pulmonary embolism. The patient to get bedrest, anticoagulation, supportive care. Radha Biggs MD
[2018-06-17] MEDS: guaiFENesin 100 mg/5 ml Syrup UD PO SCH ×4 (09:29→21:55)
[2018-06-17] MEDS ORDERED: Influenza Vaccine 60 mcg/0.5 mL SYR (4YR UP) IM ONE (10:00)
[2018-06-17] MEDS: [UNRECOGNIZED DRUG - OTHER] IV PRN (10:36)
[2018-06-17] MEDS: buPROPion 150 mg/24 Hours XL Tab PO SCH (22:14)
[2018-06-18] MEDS: Albuterol-Ipratrop 3 mg / 0.5 (3 ml) UD INH SCH ×5 (04:00→16:35)
[2018-06-18] MEDS: [UNRECOGNIZED DRUG - OTHER] IV PRN (06:23)
[2018-06-18 07:31] LABS: BASO % 0.5 % (0.0-2.0); EOS # 0.3 K/uL (0.0-0.7); EOS % 3.6 % (0.0-4.0); HEMOGLOBIN 14.1 g/dL (12.0-18.0); LYMPH # 1.3 K/uL (1.0-4.3); LYMPH % 16.4 % (20.0-40.0); MEAN CELL VOLUME 88.6 fL (80.0-94.0); MEAN CORPUSCULAR HEMOGLOBIN 29.1 pg (27.0-31.0); MEAN CORPUSCULAR HGB CONC 32.9 g/dL (33.0-37.0); MEAN PLATELET VOLUME 8.4 fL (7.2-11.7); NEUT # 5.2 K/uL (1.8-7.0); NEUT % 66.5 % (50.0-75.0); NRBC % 0.1 % (0.0-2.0); RBC 4.85 Mil/uL (4.40-5.90); RED CELL DISTRIBUTION WIDTH 15.3 % (11.5-14.5); WHITE BLOOD COUNT 7.8 K/uL (4.8-10.8)
[2018-06-18 07:41] LABS: ALB/GLOB RATIO 1.2 (1.0-2.1); ALBUMIN 3.5 g/dL (3.5-5.0); ALT/SGPT 13 U/L (21-72); AST/SGOT 20 U/L (17-59); BLOOD UREA NITROGEN 14 mg/dL (9-20); CALCIUM 8.9 mg/dl (8.6-10.4); GFR NON-AFRICAN AMERICAN > 60
[2018-06-18 08:51] VITALS: O2SAT 95
[2018-06-18] MEDS: guaiFENesin 100 mg/5 ml Syrup UD PO SCH ×3 (09:05→17:15)
--- NOTE | 2018-06-18 09:05 | VASCLAB ---
Date of service: 06/17/2018 PROCEDURE: Lower Extremity Venous Duplex Exam. HISTORY: Leg swelling PRIORS: None. TECHNIQUE: Bilateral common femoral, femoral, popliteal and posterior tibial, peroneal and great saphenous veins were evaluated. Flow was assessed with color Doppler, compressibility, assessment of phasic flow and augmentation response. Report prepared by Rodríguez Valerio, VALERIE, RVT FINDINGS: RIGHT: 1. Common Femoral Vein: 1.1. Compressibility - Fully compressible: Thrombus - None : Flow - Phasic: Augmentation -Normal: Reflux - None. 2. Femoral Vein: 2.1. Compressibility - Fully compressible: Thrombus - None : Flow - Phasic: Augmentation -Normal: Reflux - None. 3. Popliteal Vein: 3.1. Compressibility - Fully compressible: Thrombus - None : Flow - Phasic: Augmentation -Normal: Reflux - None. 4. Posterior Tibial Vein: 4.1. Compressibility - Fully compressible: Thrombus - None: Flow - Phasic: Augmentation -Normal: Reflux - None. 5. Peroneal Vein: 5.1. Compressibility - Fully compressible: Thrombus - None: Flow - Phasic: Augmentation -Normal: Reflux - None. 6. Great Saphenous Vein: 6.1. Compressibility - Fully compressible: Thrombus - None: Flow - Phasic: Augmentation - Normal: Reflux - None. LEFT: 1. Common Femoral Vein: 1.1. Compressibility - Fully compressible: Thrombus - None: Flow - Phasic: Augmentation -Normal: Reflux - None. 2. Femoral Vein: 2.1. Compressibility - Fully compressible: Thrombus - None: Flow - Phasic: Augmentation -Normal: Reflux - None. 3. Popliteal Vein: 3.1. Compressibility - Fully compressible: Thrombus - None : Flow - Phasic: Augmentation -Normal: Reflux - None. 4. Posterior Tibial Vein: 4.1. Compressibility - Fully compressible: Thrombus - None: Flow - Phasic: Augmentation -Normal: Reflux - None. 5. Peroneal Vein: 5.1. Compressibility - Fully compressible: Thrombus - None: Flow - Phasic: Augmentation -Normal: Reflux - None. 6. Great Saphenous Vein: 6.1. Compressibility - Fully compressible: Thrombus - None: Flow - Phasic: Augmentation - Normal: Reflux - None. OTHER FINDINGS: Right: None significant. Left: None significant. IMPRESSION: Right: No evidence of deep or superficial vein thrombosis of the right lower extremity. Normal valve function noted of the right side. Left: No evidence of deep or superficial vein thrombosis of the left lower extremity. Normal valve function noted of the left side.
--- NOTE | 2018-06-18 11:07 | CP.PCM.PN ---
Subjective - Date & Time of Evaluation Date of Evaluation: 06/18/18 Time of Evaluation: 11:05 - Subjective Subjective: Progress note. Attending: Dr. Biggs. Pt seen and examined at bedside. No acute distress. No events overnight. No fevers, chills, vomiting, diarrhea. No complaints today. Objective - Vital Signs/Intake and Output Vital Signs (last 24 hours): Temp Pulse Resp BP Pulse Ox 97.7 F 103 H 20 122/85 95 06/18/18 07:15 06/18/18 08:00 06/18/18 07:15 06/18/18 07:15 06/18/18 07:15 Intake and Output: 06/18/18 06/18/18 06:59 18:59 Intake Total 1038.4 Balance 1038.4 - Medications Medications: Current Medications Acetaminophen (Tylenol 325mg Tab) 650 mg PO Q4H PRN PRN Reason: pain fever Albuterol/Ipratropium (Duoneb 3 Mg/0.5 Mg (3 Ml) Ud) 3 ml INH RQ4 [facility] Last Admin: 06/18/18 07:58 Dose: 3 ml Aripiprazole (Abilify) 10 mg PO DAILY [facility] Last Admin: 06/18/18 09:05 Dose: 10 mg Bupropion HCl (Wellbutrin Xl) 150 mg PO HS [facility] Last Admin: 06/17/18 22:14 Dose: 150 mg Guaifenesin (Robitussin) 100 mg PO QID [facility] Last Admin: 06/18/18 09:05 Dose: 100 mg Heparin Sodium/Sodium Chloride (Heparin 81491 Units/250ml 1/2 Normal Saline) 25,000 units in 250 mls @ 12.791 mls/hr IV .[id number] PRN; Protocol PRN Reason: ADJUST RATE PER PROTOCOL Last Admin: 06/18/18 06:23 Dose: 12 units/kg/hr, 12.791 mls/hr Trazodone HCl (Desyrel) 50 mg PO HS [facility] Last Admin: 06/17/18 21:55 Dose: 50 mg - Labs Labs: 06/18/18 07:05 06/18/18 07:05 PT 11.7 SECONDS (9.7-12.2) 06/15/18 13:29 INR 1.1 06/15/18 13:29 APTT 83 SECONDS (21-34) H D 06/18/18 07:05 - Constitutional Appears: Non-toxic, No Acute Distress - Head Exam Head Exam: ATRAUMATIC, NORMAL INSPECTION, NORMOCEPHALIC - Eye Exam Eye Exam: EOMI - ENT Exam ENT Exam: Mucous Membranes Moist - Neck Exam Neck Exam: Full ROM - Respiratory Exam Respiratory Exam: NORMAL BREATHING PATTERN. absent: Respiratory Distress - Cardiovascular Exam Cardiovascular Exam: +S1, +S2 - GI/Abdominal Exam GI & Abdominal Exam: Soft, Normal Bowel Sounds. absent: Tenderness - Extremities Exam Extremities Exam: Full ROM, Normal Inspection - Back Exam Back Exam: NORMAL INSPECTION - Neurological Exam Neurological Exam: Alert, Awake, Oriented x3 - Psychiatric Exam Psychiatric exam: Normal Affect, Normal Mood - Skin Skin Exam: Dry, Intact, Normal Color, Warm Assessment and Plan - Assessment and Plan (Free Text) Assessment: This is a 48 yo male with 1. Pulmonary embolism. V/Q Scan: high probability of pulmonary embolism CXR: :Fibrotic changes as discussed above with no acute infiltrate bilaterally. Distortion of the hilar regions of has occurred as well as hemidiaphragms due to fibrosis of the bilateral apices. No acute infiltrate or pleural effusion bilaterally. Chest ct: 1. Prominent bilateral upper lobe scarring/volume loss with compensatory hyperinflation of the right middle and bilateral lower lobes. No acute interval consolidation, pleural effusion or pneumothorax. No definite interval mass. 2. Mild thoracic aortic aneurysm terminates at anterior arch. 3. Old healed left rib fractures. Duplex: negative for clot Medications: Heparin Drip @12.791 mls/hr 2.Bipolar disorder -Abilify 10 mg PO Daily 3.Depression -bupropion 150 mg PO HS 4. Cough - Robitussin 100mg PO QID [facility] 5. Insomnia -Trazadone 50mg PO HS [facility]
[2018-06-18 17:00] VITALS: BP 120/79; PULSE 87; TEMP 98.5
== END 2018-06-18 18:07 | disposition home or self-care (01) | DRG 176 ==
LOC: C.ER 10:37 → C.6T 16:47
PROVIDERS: ADMIT Internal Medicine Pulmonary Disease; ATTEND Internal Medicine Pulmonary Disease
DX: I26.99 Other pulmonary embolism without acute cor pulmonale (principal); F31.9 Bipolar disorder, unspecified; J44.9 Chronic obstructive pulmonary disease, unspecified; I10 Essential (primary) hypertension; F41.9 Anxiety disorder, unspecified; F32.9 Major depressive disorder, single episode, unspecified; I71.2 Thoracic aortic aneurysm, without rupture; G47.00 Insomnia, unspecified; Z98.84 Bariatric surgery status

== ENCOUNTER 2018-07-11 13:20 | Observation (INO) | payer MEDICARE, MEDICAID ==
--- NOTE | 2018-07-11 14:31 | C.PDOC ---
History Of Present Illness 48 y/o male presents to the ED complaining of recurrent hemoptysis since 3 days ago, associated with SOB. Patient states he was recently admitted a couple weeks ago, reports the CTA could not be done secondary to his allergy to iodine, and he was diagnosed with possible PE. He was discharged on Eliquis, and reports taking it twice daily at home. States he had vascular studies during the admission, showing no DVTs. Patient is also complaining of diffuse body aches describes as joint pain, and feeling tired. He denies fever. Otherwise denies chest pain, abdominal pain, vomiting, diarrhea, back pain, or urinary symptoms. Patient notes +hx of smoking, and is concerned about having lung cancer. Time Seen by Provider: 07/11/18 14:07 Chief Complaint (Nursing): Shortness Of Breath History Per: Patient History/Exam Limitations: no limitations Onset/Duration Of Symptoms: Days (x 3) Current Symptoms Are (Timing): Still Present Associated Symptoms: Bloody Cough. 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 Constitutional: Positive for: Other (Fatigue). Negative for: Fever, Chills Eyes: Negative for: Vision Change ENT: Negative for: Nose Congestion Cardiovascular: Negative for: Chest Pain, Palpitations Respiratory: Positive for: Shortness of Breath, Hemoptysis Gastrointestinal: Negative for: Nausea, Vomiting, Abdominal Pain, Diarrhea Musculoskeletal: Negative for: Back Pain Skin: Negative for: Rash Neurological: Negative for: Weakness, Numbness, Headache, Dizziness Physical Exam - Physical Exam Appears: Non-toxic, No Acute Distress Skin: Normal Color, Warm, No Rash Head: Atraumatic, Normacephalic Eye(s): bilateral: Normal Inspection, PERRL, EOMI Oral Mucosa: Moist Neck: Normal ROM, Supple Chest: Symmetrical, No Deformity, No Tenderness Cardiovascular: Rhythm Regular, No Friction Rub, No Murmur Respiratory: Normal Breath Sounds, No Decreased Breath Sounds, No Rales, No Rhonchi, No Wheezing Gastrointestinal/Abdominal: Soft, No Tenderness, No Distention Back: Normal Inspection, No CVA Tenderness Extremity: Normal ROM, No Tenderness, No Swelling Extremity: Bilateral: Atraumatic, Normal Color And Temperature, Normal ROM Pulses: Left Dorsalis Pedis: Normal, Right Dorsalis Pedis: Normal Neurological/Psych: Oriented x3, Normal Speech, Normal Motor ED Course And Treatment - Laboratory Results Result Diagrams: 07/11/18 15:24 07/11/18 15:24 O2 Sat by Pulse Oximetry: 98 (RA) Pulse Ox Interpretation: Normal Medical Decision Making Medical Decision Making: Impression: known hx of pulmonary embolism, r/o lung mass Plan: - EKG - Labs - CXR Will speak to patient's PMD to determine whether CTA can be obtained. The case was discussed with Dr. Biggs who agrees to admit the patient to his s ervice. 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 - Scribe Statement The provider has reviewed the documentation as recorded by the Scribe Johnna Cody All medical record entries made by the Scribe were at my direction and personally dictated by me. I have reviewed the chart and agree that the record accurately reflects my personal performance of the history, physical exam, medical decision making, and the department course for this patient. I have also personally directed, reviewed, and agree with the discharge instructions and disposition.
[2018-07-11 15:37] LABS: BASO % 0.5 % (0.0-2.0); EOS # 0.3 K/uL (0.0-0.7); EOS % 3.1 % (0.0-4.0); LYMPH # 1.3 K/uL (1.0-4.3); LYMPH % 14.8 % (20.0-40.0); MEAN CELL VOLUME 88.6 fL (80.0-94.0); MEAN CORPUSCULAR HEMOGLOBIN 28.8 pg (27.0-31.0); MEAN CORPUSCULAR HGB CONC 32.5 g/dL (33.0-37.0); MEAN PLATELET VOLUME 9.2 fL (7.2-11.7); MONO % 10.6 % (0.0-10.0); NEUT # 6.5 K/uL (1.8-7.0); NRBC % 0.1 % (0.0-2.0); RBC 5.64 Mil/uL (4.40-5.90); RED CELL DISTRIBUTION WIDTH 15.5 % (11.5-14.5); WHITE BLOOD COUNT 9.1 K/uL (4.8-10.8)
[2018-07-11 15:40] LABS: HEMOGLOBIN 16.2 g/dL (12.0-18.0)
[2018-07-11 15:45] LABS: INR 1.2; PROTHROMBIN TIME 12.9 SECONDS (9.7-12.2)
[2018-07-11 15:48] LABS: ALB/GLOB RATIO 1.4 (1.0-2.1); ALBUMIN 4.4 g/dL (3.5-5.0); ALT/SGPT 18 U/L (21-72); AST/SGOT 27 U/L (17-59); BLOOD UREA NITROGEN 20 mg/dL (9-20); CALCIUM 8.6 mg/dl (8.6-10.4); GFR NON-AFRICAN AMERICAN > 60; LIPASE 66 U/L (23-300)
[2018-07-11 15:58] LABS: B-TYPE NATRIURETIC PEPTIDE 51.7 pg/mL (0-900)
[2018-07-11] MEDS ORDERED: DiphenhydrAMINE 50 mg/ml Inj IVP STA (16:01)
[2018-07-11] MEDS ORDERED: MethylPREDNISolone 40 mg Vial IVP STA (16:01)
--- NOTE | 2018-07-11 17:36 | RAD ---
HISTORY: hemoptysis, SOB COMPARISON: Chest x-ray performed 06/15/[address] chest without IV contrast performed 06/15/18 TECHNIQUE: Chest, one view. FINDINGS: Examination limited by habitus. LUNGS: Biapical fibrotic changes re-identified, left greater than right upper lobes. Left upper lobe pleural thickening. Scattered nodular opacities particularly at the lung bases. Bilateral hilum appears cephalad consistent with fibrotic changes as on prior study. Tenting of the hemidiaphragm on the right. Linear atelectasis at the left lung base. No significant pleural effusion or definite pneumothorax. Please note that chest x-ray has limited sensitivity for the detection of pulmonary masses. CARDIOVASCULAR: Stable appearance of the cardiomediastinal silhouette. OSSEOUS STRUCTURES: Degenerative changes. VISUALIZED UPPER ABDOMEN: Unremarkable. OTHER FINDINGS: None. IMPRESSION: Fibrotic changes as above with distortion of the hilum. Tenting of the right hemidiaphragm. Left upper lobe pleural thickening. Linear atelectasis, left lung base.
--- NOTE | 2018-07-12 07:39 | CP.PCM.PN ---
Subjective - Date & Time of Evaluation Date of Evaluation: 07/12/18 Time of Evaluation: 07:39 - Subjective Subjective: Progress note for Dr. Biggs Patient is a 48 year old male with a history of pulmonary embolism, hypertension, depression, bipolar disorder, thoracic aortic aneurysm, who presents to the hospital with complaints of hemoptysis, fatigue and body aches for 3 days. He was recently hospitalized for similar complaints in June and was diagnosed with a pulmonary embolism and started on Eliquis. The patient currently admits to tight chest, occasionally short of breath, slightly blood tinged sputum when coughing, and denies chest pain, pain with coughing or respiration, palpitations, dizziness, lightheadedness, nausea, vomiting, fevers, headaches, vision changes, weight changes, recent travel and sick contacts. 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 Allergies: PCN (?reacton), Iodine (hives), Benadryl (was given benadryl after iodine and hives worsened) Medications: Lisinopril 20mg po qd, eliquis 5mg po bid, wellbutrin 150mg po qd, trazodone 50mg po hs, abilify 10mg po qd, gabapentin Objective - Vital Signs/Intake and Output Vital Signs (last 24 hours): Temp Pulse Resp BP Pulse Ox 97.9 F 96 H 20 108/67 96 07/11/18 23:40 07/12/18 03:35 07/11/18 23:40 07/11/18 23:40 07/11/18 23:40 - Medications Medications: Current Medications Apixaban (Eliquis) 5 mg PO BID [facility] Last Admin: 07/11/18 21:09 Dose: 5 mg Aripiprazole (Abilify) 10 mg PO HS [facility] Last Admin: 07/11/18 21:10 Dose: 10 mg Bupropion HCl (Wellbutrin Xl) 150 mg PO DAILY [facility] Gabapentin (Neurontin) 800 mg PO TID [facility] Last Admin: 07/11/18 21:10 Dose: 800 mg Lisinopril (Zestril) 20 mg PO DAILY [facility] Trazodone HCl (Desyrel) 50 mg PO HS [facility] Last Admin: 07/11/18 21:09 Dose: 50 mg - Labs Labs: 07/11/18 15:24 07/11/18 15:24 PT 12.9 SECONDS (9.7-12.2) H 07/11/18 15:24 INR 1.2 07/11/18 15:24 APTT 41 SECONDS (21-34) H 07/11/18 15:24 - Constitutional Appears: No Acute Distress - Head Exam Head Exam: ATRAUMATIC, NORMAL INSPECTION - Eye Exam Eye Exam: EOMI, Normal appearance - ENT Exam ENT Exam: Mucous Membranes Moist - Respiratory Exam Respiratory Exam: Decreased Breath Sounds, Rales (L>R), NORMAL BREATHING PATTERN. absent: Accessory Muscle Use, Chest Wall Tenderness, Respiratory Distress Additional comments: well healed axillary scars b/l - Cardiovascular Exam Cardiovascular Exam: REGULAR RHYTHM, +S1, +S2 - GI/Abdominal Exam GI & Abdominal Exam: Soft, Normal Bowel Sounds. absent: Distended, Firm, Guarding, Tenderness - Extremities Exam Extremities Exam: Normal Inspection. absent: Calf Tenderness, Pedal Edema, Tenderness - Neurological Exam Neurological Exam: Alert, Awake, Oriented x3 - Psychiatric Exam Psychiatric exam: Normal Mood - Skin Skin Exam: Dry, Normal Color, Warm Assessment and Plan - Assessment and Plan (Free Text) Plan: Hemoptysis - Hemoptysis likely secondary to PE, maybe due to lung fibrosis, bronchitis - PE was diagnosed at previous admission on 06/16/18, Was started on Eliquis - CXR: fibrotic changes w/distortion of the hilum; tenting of the right hemidiaphragm; left upper lobe pleural thickening; linear atelectasis of left lung base. - V/Q scan ordered: f/u - PPD: f/u - Flu: f/u - Medications: * Eliquis 5mg PO BID * Duonebs Q4 * Breo 1 inh daily * Avelox 400mg po daily Pulmonary Embolism - Continue Eliquis 5mg PO BID - V/Q scan: f/u - Imaging from previous admission: * V/Q scan from previous admission: high probability of pulmonary embolism * Chest CT from previous admission (06/15/18): Prominent bilateral upper lobe scarring/volume loss with compensatory hyperinflation of the right middle and bilateral lower lobes. No acute interval consolidation, pleural effusion or pneumothorax. No definite interval mass. Mild thoracic aortic aneurysm terminates at anterior arch. Old healed left rib fractures. Thoracic Aortic Aneurysm - 4.0cm ascending thoracic aneurysm noted on Chest CT from previous admission (06/15/18) - Patient will need repeat outpatient Chest CT in 6 months Hypertension - Continue home medication: Lisinopril 20mg PO daily Bipolar disorder - Continue home medication: Abilify 10 mg PO Daily Depression - Continue home medication: Bupropion 150 mg PO HS Insomnia - Continue home medication: Trazadone 50mg PO HS Left leg Neuropathy - Continue home medication: Gabapentin 800mg PO TID Prophylaxis - Eliquis 5mg PO BID, SCDs - GI: not indicated - O2 via NC prn - Heart Healthy Diet Case discussed with and patient seen with Dr. Dian Miles, PGY2
[2018-07-12] MEDS: buPROPion 150 mg/24 Hours XL Tab PO SCH (09:49)
[2018-07-12] MEDS ORDERED: Tuberculin 5 Units/0.1 ml Inj ID ONE (10:30)
--- NOTE | 2018-07-12 13:33 | NM ---
Date of service: 07/12/2018 COMPARISON: 06/15/2018 ventilation-perfusion scan. Summary of findings on the comparison examination: High probability ventilation perfusion scan pulmonary embolism. 06/17/2018 lower extremity duplex venous sonography. Summary of findings on the comparison examination: No evidence of deep or superficial venous thrombosis either lower extremity. July 11, 2018. Single-view chest. TECHNIQUE: 7.2 mCi technetium 99-m Xe-133 Gas. 3.4 mCI technetium 99-m MAA administered intravenously. FINDINGS: VENTILATION COMPONENT: Heterogeneous ventilation. Diminished ventilation of the left lung compared to the right lung consistent with findings on recent plain film radiographs. PERFUSION COMPONENT: Heterogeneous distribution of radionuclide. No geographic, segmental, lobar abnormalities apparent on the present examination. IMPRESSION: Low probability ventilation perfusion scan for pulmonary embolism.
[2018-07-12] MEDS: Albuterol-Ipratrop 3 mg / 0.5 (3 ml) UD INH SCH ×2 (16:25→19:59)
[2018-07-12 17:04] VITALS: RESP 20
[2018-07-13] MEDS: Albuterol-Ipratrop 3 mg / 0.5 (3 ml) UD INH SCH ×3 (00:53→11:01)
[2018-07-13 07:35] LABS: BASO % 0.6 % (0.0-2.0); EOS # 0.4 K/uL (0.0-0.7); EOS % 5.3 % (0.0-4.0); HEMOGLOBIN 14.3 g/dL (12.0-18.0); LYMPH # 1.3 K/uL (1.0-4.3); MEAN CELL VOLUME 88.8 fL (80.0-94.0); MEAN CORPUSCULAR HEMOGLOBIN 28.7 pg (27.0-31.0); MEAN CORPUSCULAR HGB CONC 32.4 g/dL (33.0-37.0); MEAN PLATELET VOLUME 8.7 fL (7.2-11.7); MONO # 0.8 K/uL (0.0-0.8); MONO % 11.1 % (0.0-10.0); NEUT # 4.6 K/uL (1.8-7.0); RBC 4.96 Mil/uL (4.40-5.90); RED CELL DISTRIBUTION WIDTH 15.5 % (11.5-14.5)
[2018-07-13] MEDS ORDERED: Fluticasone-Vilanterol 200/25mcg Diskus INH SCH (08:00)
--- NOTE | 2018-07-13 08:16 | CARD ---
APPROVED REPORT Date of service: 07/11/2018 EKG Measurement Heart [id number] <Conclusion> Normal sinus rhythm Possible Left atrial enlargement Left axis deviation Abnormal ECG
[2018-07-13 08:18] LABS: ALB/GLOB RATIO 1.3 (1.0-2.1); ALBUMIN 3.4 g/dL (3.5-5.0); ALT/SGPT 20 U/L (21-72); AST/SGOT 21 U/L (17-59); BLOOD UREA NITROGEN 19 mg/dL (9-20); CALCIUM 8.1 mg/dl (8.6-10.4); GFR NON-AFRICAN AMERICAN > 60
[2018-07-13 09:01] VITALS: PULSE 113
[2018-07-13 09:10] VITALS: BP 134/76; TEMP 98.5; O2SAT 96
[2018-07-13] MEDS: buPROPion 150 mg/24 Hours XL Tab PO SCH (09:30)
--- NOTE | 2018-07-13 11:21 | CP.PCM.PN ---
Subjective - Date & Time of Evaluation Date of Evaluation: 07/13/18 Time of Evaluation: 11:20 - Subjective Subjective: PATIENT SEEN AND EXAMINED AT THE BEDSIDE Objective - Vital Signs/Intake and Output Vital Signs (last 24 hours): Temp Pulse Resp BP Pulse Ox 98.5 F 113 H 20 134/76 96 07/13/18 07:00 07/13/18 08:51 07/13/18 07:00 07/13/18 07:00 07/13/18 07:00 - Medications Medications: Current Medications Albuterol/Ipratropium (Duoneb 3 Mg/0.5 Mg (3 Ml) Ud) 3 ml INH RQ4 [facility] Last Admin: 07/13/18 11:01 Dose: 3 ml Apixaban (Eliquis) 5 mg PO BID [facility] Last Admin: 07/13/18 09:30 Dose: 5 mg Aripiprazole (Abilify) 10 mg PO HS [facility] Last Admin: 07/12/18 22:22 Dose: 10 mg Bupropion HCl (Wellbutrin Xl) 150 mg PO DAILY [facility] Last Admin: 07/13/18 09:30 Dose: 150 mg Fluticasone/Vilanterol (Breo Ellipta 200-25 Mcg Inh) 1 puff INH RQD [facility] Last Admin: 07/13/18 11:01 Dose: 1 puff Gabapentin (Neurontin) 800 mg PO TID [facility] Last Admin: 07/13/18 09:31 Dose: 800 mg Lisinopril (Zestril) 20 mg PO DAILY [facility] Last Admin: 07/13/18 09:30 Dose: 20 mg Moxifloxacin HCl (Avelox) 400 mg PO Q24H [facility]; Protocol Last Admin: 07/12/18 13:43 Dose: 400 mg Trazodone HCl (Desyrel) 50 mg PO HS [facility] Last Admin: 07/12/18 22:22 Dose: 50 mg - Labs Labs: 07/13/18 07:24 07/13/18 07:24 PT 12.9 SECONDS (9.7-12.2) H 07/11/18 15:24 INR 1.2 07/11/18 15:24 APTT 41 SECONDS (21-34) H 07/11/18 15:24 Assessment and Plan - Assessment and Plan (Free Text) Assessment: FOLLOW UP WITH DR AGRAWAL IN HIS OFFICE -----CALL FOR APPOINTMENT ADDRESS YOUR REPEAT CT AT YOUR VISIT CONTINUE HOME MEDICATION NEW PRESCRIPTION GIVEN LEVAQUIN 750 MG DAILY PO FOR 7 DAYS BACID ONE TAB DAILY FOR 7 DAYS BREO ELLIPTA ONE PUFF DAILY ABILIFY AND WELLBUTRIN ACTIVITY TOLERATED CALL DR AGRAWAL OR GO TO THE EMERGENCY ROOM IF SYMPTOM RETURN OR WORSENING
== END 2018-07-13 13:02 | disposition home or self-care (01) ==
LOC: C.ER 13:20 → C.9E 17:07 → C.6T 17:15
PROVIDERS: ADMIT Internal Medicine Pulmonary Disease; ATTEND Internal Medicine Pulmonary Disease
DX: R04.2 Hemoptysis (principal); I71.2 Thoracic aortic aneurysm, without rupture; I10 Essential (primary) hypertension; F31.9 Bipolar disorder, unspecified; J44.9 Chronic obstructive pulmonary disease, unspecified; Z79.01 Long term (current) use of anticoagulants; Z80.0 Family history of malignant neoplasm of digestive organs; Z80.1 Family history of malignant neoplasm of trachea, bronchus and lung; Z86.711 Personal history of pulmonary embolism; Z87.891 Personal history of nicotine dependence; Z91.041 Radiographic dye allergy status; Z98.84 Bariatric surgery status
CPT/HCPCS: 36415; 71045; 78582; 80053; 83690; 83880; 84484; 85025; 85610; 85730; 87804; 93005; 94640; 96372; 99285; A9540; A9558; G0378